=== PATIENT | male | born 1980 | race African-American/Black ===

== ENCOUNTER 2016-08-16 12:14 | Emergency (ER) | payer OTHER ==
[~2016-08-16] VITALS: Ht 195.6 cm; Wt 88.5 kg
[2016-08-16] MEDS ORDERED: NORCO 5-325 TA1 EACH PO (14:31)
[2016-08-16 14:44] VITALS: BP 127/69
== END 2016-08-16 14:46 | disposition home or self-care (01) ==
LOC: ER 12:14
DX: T33.822A Superficial frostbite of left foot, initial encounter (principal); F10.99 Alcohol use, unspecified with unspecified alcohol-induced disorder; T33.821A Superficial frostbite of right foot, initial encounter; X31.XXXA Exposure to excessive natural cold, initial encounter; Y93.9 Activity, unspecified; Y92.9 Unspecified place or not applicable; Y99.9 Unspecified external cause status

== ENCOUNTER → 2016-08-17 | Outpatient (CLI) | payer OTHER ==
[~2016-08-17] MED LIST: NORCO 5-325 TA1 EACH PO
== END ==
LOC: HYPER 06:57
DX: T34.831A Frostbite with tissue necrosis of right toe(s), initial encounter (principal); T34.832A Frostbite with tissue necrosis of left toe(s), initial encounter; T34.822A Frostbite with tissue necrosis of left foot, initial encounter; T34.821A Frostbite with tissue necrosis of right foot, initial encounter; F17.210 Nicotine dependence, cigarettes, uncomplicated; Z72.89 Other problems related to lifestyle; W93.8XXA Exposure to other excessive cold of man-made origin, initial encounter; Y93.29 Activity, other involving ice and snow; Y92.89 Other specified places as the place of occurrence of the external cause; Y99.8 Other external cause status